=== PATIENT | male | born 1970 ===

== ENCOUNTER 2025-07-03 05:25 | Emergency (ER) | payer MEDICAID, OTHER ==
[~2025-07-03] VITALS: Ht 177.8 cm; Wt 115.7 kg
--- NOTE | 2025-07-03 05:56 | ED.PDOC ---
SOB-HPI HPI Comments 55 M presented to the ER with a chief complaint of shortness of breaths ongoing for the past 2 months associated with dry cough, reports experiencing fever and chills yesterday. Also reported nausea and 6 episodes of vomiting which was nonbloody yesterday. Denies any abdominal pain. Denies orthopnea or paroxysmal nocturnal dyspnea. Denies chest pain or wheezing. Denies past medical history Social history: Smokes methamphetamine for 20 years, quit 2 years back. Former smoker, drinks socially Home medications none Patient seen and examined. No wheezing or crackles heard on auscultation Chief Complaint: Shortness of Breath Time Seen by MD: 05:51 Primary Care Provider: UNKNOWN Reviewed notes: Nurses Notes Information Source: Patient Mode of Arrival: Ambulatory Past Medical History PAST MEDICAL HISTORY: Denies Past Medical History (Other): Denies Surgical History: Denies all surgeries Family History Family History: Reviewed,noncontributory to illness Social History Smoker: Cigarettes Alcohol: Denies ETOH Use Drugs: Denies Drug Use Lives In: Home Constitutional: reports: chills, fever, weakness EENTM: denies: blurred vision, double vision, ear bleeding, ear discharge, ear drainage, ear pain, ear ringing, eye pain, eye redness, hearing loss, mouth pain, mouth swelling, nasal discharge, nose bleeding, nose congestion, nose pain, photophobia, tearing, throat pain, throat swelling, voice changes, others Respiratory: reports: cough, SOB at rest, SOB with excertion Cardiovascular: denies: chest pain, dizzy spells, diaphoresis, Dyspnea on exertion, edema, irregular heart beat, left arm pain, lightheadedness, palpitations, PND, syncope, others Gastrointestinal: reports: diarrhea, nausea, vomiting Genitourinary: denies: burning, dysuria, flank pain, frequency, hematuria, incontinence, penile discharge, penile sore, pain, testicle pain, testicle swelling, urgency, others Neurological: denies: dizziness, fainting, headache, left sided numbness, left sided weakness, numbness, paresthesia, pre-existing deficit, right sided numbness, right sided weakness, seizure, speech problems, tingling, tremors, weakness, others Musculoskeletal: denies: back pain, gout, joint pain, joint swelling, muscle pain, muscle stiffness, neck pain, others Integumetry: denies: bruises, change in color, change in hair/nails, dryness, laceration, lesions, lumps, rash, wounds, others Allergic/Immunocompromised: denies: Difficulty Healing, Frequent Infections, Hives, Itching, others Hematologic/Lymphatic: denies: anemia, blood clots, easy bleeding, easy bruising, swollen glands, others Endocrine: denies: excessive hunger, excessive sweating, excessive thirst, excessive urination, flushing, intolerance to cold, intolerance to heat, unexplained weight gain, unexplained weight loss, others Psychiatric: denies: anxiety, bipolar disorder, depression, hopeless, panic disorder, schizophrenia, sleepless, suicidal, others Physical Exam General Appearance: No Apparent Distress, Normal HEENT: Normal ENT Inspection, Pharynx Normal, TMs Normal Neck: NOT DONE Respiratory: Decreased Breath Sounds, No Accessory Muscle Use, No Respiratory Distress Cardiovascular: No Edema, No JVD, No Murmur, No Gallop, Normal Peripheral Pulses, Regular Rate/Rhythm Breast Exam: Deferred Gastrointestinal: No Organomegaly, Non Tender, No Pulsatile Mass, Normal Bowel Sounds, Soft Genitalia: Deferred Pelvic: Deferred Rectal: Deferred Extremities: Leg edema (Trace), No calf tenderness, Normal capillary refill, Normal inspection, Normal range of motion, Non-tender Neurologic: Normal Affect, NOT DONE Cerebellar Function: NOT DONE Reflexes: NOT DONE Skin: Dry, None, Normal Color Lymphatic: NOT DONE Was a procedure done? Was a procedure done?: No Differential Dx Differential Diagnosis: CHF, COPD, Pneumonia, Pharyngitis, URI X-Ray, Labs, Meds, VS Vital Signs Date Time Temp Pulse Resp B/P (MAP) Pulse Ox O2 Delivery O2 Flow Rate FiO2 07/03/25 06:15 100 Room Air* 0 21 07/03/25 06:10 97.8 79 16 156/97 (116) 95 97.8 07/03/25 05:27 98.3 85 16 172/93 95 98.3 Lab Test 07/03/25 07:07 07/03/25 05:53 Range/Units Troponin I High Sensitivity Pending 11 </=54 ng/L White Blood Count 5.8 4.4-10.8 10^3/uL Red Blood Count 5.18 4.5-5.90 10^6/uL Hemoglobin 16.1 13.5-17.5 g/dL Hematocrit 47.6 41.0-53.0 % Mean Corpuscular Volume 92.0 80.0-100.0 fL Mean Corpuscular Hemoglobin 31.1 28.0-32.0 pg Mean Corpuscular Hemoglobin Concent 33.8 32.0-36.0 g/dL Red Cell Distribution Width 14.5 H 11.8-14.3 % Platelet Count 201 140-450 10^3/uL Mean Platelet Volume 7.6 6.9-10.8 fL Neutrophils (%) (Auto) 64.9 37.0-80.0 % Lymphocytes (%) (Auto) 24.2 10.0-50.0 % Monocytes (%) (Auto) 8.2 0.0-12.0 % Eosinophils (%) (Auto) 2.0 0.0-7.0 % Basophils (%) (Auto) 0.7 0.0-2.0 % Neutrophils # (Auto) 3.7 1.6-8.6 10 ^3/uL Lymphocytes # (Auto) 1.4 0.4-5.4 10 ^3/uL Monocytes # (Auto) 0.5 0-1.3 10 ^3/uL Eosinophils # (Auto) 0.1 0-0.8 10 ^3/uL Basophils # (Auto) 0 0-0.2 10 ^3/uL Nucleated Red Blood Cells 0.1 % Sodium Level 138 136-145 mmol/L Potassium Level 3.8 3.5-5.1 mmol/L Chloride Level 104 98-107 mmol/L Carbon Dioxide Level 24 20-31 mmol/L Anion Gap 10 5-15 Blood Urea Nitrogen 15 9-23 mg/dL Creatinine 1.15 0.700-1.30 mg/dL Glomerular Filtration Rate Calc 76 >90 mL/min BUN/Creatinine Ratio 13.0 10.0-20.0 Serum Glucose 111 H 74-106 mg/dL Lactic Acid Level 1.3 0.4-2.0 mmol/L Calcium Level 9.3 8.7-10.4 mg/dL Total Bilirubin 1.6 H 0.2-1.0 mg/dL Aspartate Amino Transferase (AST) 55 H 13-40 U/L Alanine Aminotransferase (ALT) 88 H 7-40 U/L Alkaline Phosphatase 97 46-116 U/L B-Type Natriuretic Peptide 14.85 0-100 pg/mL Total Protein 7.6 5.7-8.2 g/dL Albumin 4.4 3.2-4.8 g/dL Current Medications Medications (Trade) Dose Ordered Sig/Salvador Route Start Time Stop Time Status Last Admin Albuterol (Ventolin Medneb) 2.5 mg ONCE ONCE NEB 07/03/25 07:00 07/03/25 07:01 DC 07/03/25 07:08 X-Ray, Labs, Meds, VS Comment CBC within normal limits CMP shows transaminitis likely nonalcoholic fatty liver Chest x-ray unremarkable BNP WNL Patient's shortness of breath resolved with albuterol nebulized treatment Images Reviewed?: Images reviewed and evaluated by me Time of 1ST Reevaluation: 07:00 Reevaluation 1ST: Improved (Shortness of breaths has resolved) Consultation: PCP Patient Education/Counseling: Diagnosis, Treatment, Prognosis, Need For Follow Up Family Education/Counseling: No Family Present SEPSIS Sepsis Screen Date sepsis recognized/suspect: Jul 03, 2025 Time Sepsis recognized/suspect: 528 Recent Procedure: No On Antibiotic Therapy: No Respiratory Rate >20: No Heart Rate >90: No Temp<36 C (96.8 F) or >38.3 C: No SBP <90 or MAP <65 mmHG: No New Acute Mental Status Change: No Is the patient on CPAP, BIPAP,: No Physician Orders Digester Hand (07/03/25 ) Urinalysis (07/03/25 05:42) Electrocardigram (07/03/25 05:42) Troponin-I Hs (07/03/25 06:42) Troponin-I Hs (07/03/25 08:42) Chest Portable (07/03/25 05:42) Blood Culture (07/03/25 05:51) Vital Signs Date Time Temp Pulse Resp B/P (MAP) Pulse Ox O2 Delivery O2 Flow Rate FiO2 07/03/25 06:15 100 Room Air* 0 21 07/03/25 06:10 97.8 79 16 156/97 (116) 95 97.8 07/03/25 05:27 98.3 85 16 172/93 95 98.3 Laboratory Tests Test 07/03/25 05:53 Lactic Acid Level 1.3 mmol/L (0.4-2.0) White Blood Count 5.8 10^3/uL (4.4-10.8) Medications Medications Dose Ordered Sig/Salvador Route Start Time Stop Time Status Last Admin Dose Admin Albuterol 2.5 mg ONCE ONCE NEB 07/03/25 07:00 07/03/25 07:01 DC 07/03/25 07:08 Departure 1 Departure Time of Disposition: 07:19 Impression: Primary Impression: Dyspnea Additional Impression: Methamphetamine abuse in remission Disposition: HOME / SELF CARE / HOMELESS Condition: Stable Discharged With: Self Comments Follow up with primary care physician within the next 3 days Follow with discharge clinic appointment within the next 7 days Please return to the ER or call your PCP in case of fever or chills or shortness of breaths or intractable pain or nausea and vomiting Critical Care Note Critical Care Time?: No Stability Stability form required: No Heart Score Heart Score: Heart Score Response (Comments) Value History Slightly Suspicious 0 EKG N/A 0 Age 45-64 1 Risk Factors 1 or 2 risk factors 1 Troponin Normal limit 0 Total 2 CECILIA BRYAN RESIDENT Jul 03, 2025 05:56
[2025-07-03 06:10] VITALS: BP 156/97; PULSE 79; TEMP 97.8
--- NOTE | 2025-07-03 06:14 | DVH ---
CHEST RADIOGRAPH Indication: sob Technique: Single frontal view of the chest was obtained COMPARISON: XY CHEST TWO VIEWS ROUTINE on DOS: 12/13/24, XY CHEST TWO VIEWS ROUTINE on DOS: 09/21/24, XY CHEST PORTABLE on DOS: 04/30/24 FINDINGS: Lines and Tubes: None Lungs: Clear Pleura: No effusion. No pneumothorax. Cardiomediastinal contours: Unremarkable Bones: Unremarkable IMPRESSION: 1. No acute disease.
[2025-07-03 06:15] VITALS: O2SAT 100
[2025-07-03 06:36] LABS: Hematocrit 47.6 % (41.0-53.0); Hemoglobin 16.1 g/dL (13.5-17.5); Mean Corpuscular Hemoglobin 31.1 pg (28.0-32.0); Mean Corpuscular Volume 92.0 fL (80.0-100.0); Nucleated Red Blood Cells % 0.1 %
[2025-07-03 06:53] LABS: Albumin 4.4 g/dL (3.2-4.8); Alkaline Phosphatase 97 U/L (46-116); Anion Gap 10 (5-15); BUN/Creatinine Ratio 13.0 (10.0-20.0); Blood Urea Nitrogen 15 mg/dL (9-23); Calcium 9.3 mg/dL (8.7-10.4); Carbon Dioxide 24 mmol/L (20-31); Chloride 104 mmol/L (98-107); Potassium 3.8 mmol/L (3.5-5.1); Sodium 138 mmol/L (136-145); Total Protein 7.6 g/dL (5.7-8.2)
[2025-07-03 06:56] LABS: Alanine Aminotransferase 88 U/L (7-40); Bilirubin, Total 1.6 mg/dL (0.2-1.0); Glucose 111 mg/dL (74-106)
[2025-07-03 07:08] VITALS: RESP 18; O2SAT 98
[2025-07-03] MEDS: ALBUTEROL SULF 2.5 MG/0.5ML(0.5%) NEB SOLN NEB ONE (07:08)
== END 2025-07-03 07:28 | disposition home or self-care (01) ==
LOC: ER 05:25
DX: F15.11 Other stimulant abuse, in remission (principal); R06.00 Dyspnea, unspecified
CPT/HCPCS: 36415; 71045; 80053; 83605; 83880; 84484; 85025; 87040; 94640